=== PATIENT | female | born 1985 | race Caucasian/White ===

== ENCOUNTER 2016-09-18 17:04 | Emergency (ER) | payer OTHER ==
[~2016-09-18] VITALS: Ht 165.1 cm; Wt 95.3 kg
[2016-09-18 17:05] VITALS: BP 113/67
[2016-09-18] MEDS ORDERED: IBUP600T26 PO (18:14)
[2016-09-18] MEDS ORDERED: KEFL500C7 PO (18:14)
[2016-09-18] MEDS ORDERED: predniSONE 20 MG TAB PO ONE (18:15)
[2016-09-18] MEDS ORDERED: CEPHALEXIN 500 MG CAP PO ONE (18:15)
== END 2016-09-18 18:29 | disposition home or self-care (01) ==
LOC: M ED 18:00
DX: J02.0 Streptococcal pharyngitis (principal)

== ENCOUNTER 2016-10-04 16:33 | Emergency (ER) | payer OTHER ==
[~2016-10-04] VITALS: Ht 165.1 cm; Wt 95.3 kg
[~2016-10-04 16:33] MED LIST: IBUP600T26 PO; KEFL500C7 PO
[2016-10-04 18:18] LABS: CONTROL LINE UCG INT CTR LINE PRESENT
[2016-10-04] MEDS ORDERED: DIFL150T PO (18:47)
[2016-10-04] MEDS ORDERED: BACT800T5 PO (18:47)
[2016-10-04 18:53] VITALS: BP 120/76
== END 2016-10-04 19:09 | disposition home or self-care (01) ==
LOC: M ED 18:51
DX: N30.00 Acute cystitis without hematuria (principal); B37.3 Candidiasis of vulva and vagina; E66.9 Obesity, unspecified

== ENCOUNTER 2018-07-02 12:33 | Emergency (ER) | payer OTHER ==
[~2018-07-02] VITALS: Ht 165.1 cm; Wt 111.4 kg
[~2018-07-02 12:33] MED LIST changes: +BACT800T5 PO; +DIFL150T PO; +IBUP-1022 PO; -IBUP600T26 PO; +KEFL500C17 PO; -KEFL500C7 PO
[2018-07-02 14:20] LABS: HEMATOCRIT 38.9 % (36.0-47.0); HEMOGLOBIN 13.3 g/dl (12.0-15.5); MEAN CORPUSCULAR HEMOGLOBIN 29.4 pg (27.0-33.0); MEAN CORPUSCULAR HGB CONC 34.2 g/dl (32.0-36.5); MEAN CORPUSCULAR VOLUME 86.1 fl (80.0-96.0); PLATELET COUNT, AUTOMATED 156 10^3/uL (150-450); RED BLOOD COUNT 4.52 10^6/uL (4.00-5.40); WHITE BLOOD COUNT 2.6 10^3/uL (4.0-10.0)
[2018-07-02 14:54] LABS: MONO SCRN NEGATIVE (NEGATIVE)
[2018-07-02 15:05] LABS: ATYPICAL LYMPH 14 % (0-5); BASOPHILS 2 % (0-4); EOSINOPHILS 5 % (0-5); LYMPHOCYTES 22 % (16-52); MONOCYTES 15 % (0-8); NEUTROPHILS 37 % (35-75); PLATELET ESTIMATE NORMAL (NORMAL)
[2018-07-02 15:06] LABS: TOXIC VACUOLATION 1+
[2018-07-02 15:26] VITALS: BP 118/68
== END 2018-07-02 15:34 | disposition home or self-care (01) ==
LOC: M ED 12:33
DX: D72.819 Decreased white blood cell count, unspecified (principal); R59.1 Generalized enlarged lymph nodes

== ENCOUNTER → 2018-07-16 | Outpatient (REF) | payer OTHER ==
[2018-07-16 12:02] LABS: BASO # 0.1 10^3/uL (0.0-0.2); BASO % 1.5 % (0.0-1.0); EOS % 0.6 % (0.0-3.0); HEMATOCRIT 37.9 % (36.0-47.0); HEMOGLOBIN 12.7 g/dl (12.0-15.5); LYMPH # 1.9 10^3/uL (1.5-4.5); LYMPH % 38.5 % (24.0-44.0); MEAN CORPUSCULAR HEMOGLOBIN 28.6 pg (27.0-33.0); MEAN CORPUSCULAR HGB CONC 33.5 g/dl (32.0-36.5); MEAN CORPUSCULAR VOLUME 85.4 fl (80.0-96.0); MONO # 0.3 10^3/uL (0.0-0.8); MONO % 7.1 % (0.0-5.0); NEUTROPHILS # 2.5 10^3/uL (1.8-7.7); NEUTROPHILS % 52.3 % (36.0-66.0); PLATELET COUNT, AUTOMATED 225 10^3/uL (150-450); RED BLOOD COUNT 4.44 10^6/uL (4.00-5.40); WHITE BLOOD COUNT 4.8 10^3/uL (4.0-10.0)
[2018-07-16 12:29] LABS: APPEARANCE, URINE HAZY (CLEAR); BACTERIA, URINE AUTO NEGATIVE (NEGATIVE); BILIRUBIN, URINE AUTO NEGATIVE (NEGATIVE); BLOOD, URINE BLOOD NEGATIVE (NEGATIVE); COLOR, URINE YELLOW (YELLOW); GLUCOSE, URINE (UA) AUTO NEGATIVE (NEGATIVE); KETONE, URINE AUTO NEGATIVE (NEGATIVE); LEUKOCYTE ESTERASE, URINE AUTO 1+ (NEGATIVE); MUCUS, URINE LARGE (NEGATIVE); NITRITE, URINE AUTO NEGATIVE (NEGATIVE); PROTEIN, URINE AUTO NEGATIVE (NEGATIVE); RBC, URINE AUTO 0 /HPF (0-3); SPECIFIC GRAVITY URINE AUTO 1.026 (1.002-1.035); SQUAMOUS EPITHELIAL CELL UR AU 18 /HPF (0-6); WBC, URINE AUTO 5 /HPF (0-3)
[2018-07-16 12:35] LABS: ALBUMIN 3.7 GM/DL (3.2-5.2); ALT/SGPT 39 U/L (12-78); BILIRUBIN,TOTAL 0.4 MG/DL (0.2-1.0); BLOOD UREA NITROGEN 12 MG/DL (7-18); CALCIUM LEVEL 8.7 MG/DL (8.5-10.1); CARBON DIOXIDE LEVEL 27 MEQ/L (21-32); CHLORIDE LEVEL 107 MEQ/L (98-107); CHOLESTEROL LEVEL 169 MG/DL (<200); CHOLESTEROL RISK RATIO 4.447 (<5); CREATININE FOR GFR 0.66 MG/DL (0.55-1.30); FREE T4 1.03 NG/DL (0.76-1.46); GLOMERULAR FILTRATION RATE > 60.0 (>60); GLUCOSE, FASTING 83 MG/DL (70-100); HDL CHOLESTEROL 38 MG/DL (>40); LDL CHOLESTEROL 108 MG/DL (<100); NON-HDL-C 131 MG/DL; POTASSIUM SERUM 4.4 MEQ/L (3.5-5.1); SODIUM LEVEL 140 MEQ/L (136-145); TOTAL 25(OH) VITAMIN D 16.2 NG/ML (30.0-100.0); TOTAL PROTEIN 7.7 GM/DL (6.4-8.2); TRIGLYCERIDES LEVEL 115 MG/DL (<150)
== END ==
LOC: M SFHCPLAZ 10:17
PROVIDERS: ATTEND Nurse Practitioner Family
DX: R53.83 Other fatigue (principal); Z13.228 Encounter for screening for other metabolic disorders; N39.0 Urinary tract infection, site not specified; E55.9 Vitamin D deficiency, unspecified